=== PATIENT | male | born 1965 | race Caucasian/White ===

== ENCOUNTER → 2017-02-27 | Outpatient (CLI) | payer OTHER ==
--- NOTE | 2017-02-27 11:31 | REP ---
MRI LUMBAR SPINE WITHOUT CONTRAST: HISTORY: Back pain. A diffuse disc bulge is present at the L1-2 level. There is an increase in the amount of epidural fat. There is minimal thecal sac compression. The L1 nerves exit the neural foramina without compression. A diffuse disc bulge is present at the L2-3 level. There is an increase in the amount of epidural fat. There is minimal compression of the thecal sac. The L2 nerves exit the neural foramina without compression. A diffuse disc bulge is present at the L3-4 level. There is an increase in the amount of epidural fat. There is moderate compression of the thecal sac. The L3 nerves exit the neural foramina without compression. A diffuse disc bulge is present at the L4-5 level. There is an increase in the amount of epidural fat. There is moderate compression of the thecal sac. There is hypertrophy of the posterior articulating facets. The L4 nerves exit the neural foramina without compression. A diffuse disc bulge is present at the L5-S1 level. This abuts the thecal sac. There is an increase in the amount of epidural fat. There is mild compression of the thecal sac. There is hypertrophy of the posterior articulating facets. The L5 nerves exit the neural foramina without compression. The conus medullaris is normal in appearance terminating at the level of the T12-L1 intervertebral disc. Normal signal intensity is present in the lumbar intervertebral discs and vertebral bodies. IMPRESSION: 1. Diffuse disc bulge and epidural lipomatosis at the L1-2 and L2-3 levels with minimal thecal sac compression. 2. Diffuse disc bulge and epidural lipomatosis at the L3-4 and L4-5 levels with moderate thecal sac compression. 3. Diffuse disc bulge and epidural lipomatosis at the L5-S1 level with mild thecal sac compression. Signed by Nathan Pringle MD 02/27/2017 11:37 A
--- NOTE | 2017-02-27 11:53 | REP ---
MRI THORACIC SPINE WITHOUT CONTRAST: HISTORY: Back pain. A disc bulge and small central disc protrusion are present at the C7-T1 level. There is mild effacement of the thecal sac without spinal cord compression. The C7 neural foramina are patent on sagittal images. A disc bulge is present at the T1-2 level. There is minimal effacement of the thecal sac without spinal cord compression. The T1 neural foramina are patent. A small central disc protrusion is present at the T2-3 level. There is minimal effacement of the thecal sac without spinal cord compression. The T2 neural foramina are patent. A small central disc protrusion is present at the T3-4 level. There is minimal effacement of the thecal sac without spinal cord compression. The T3 neural foramina are patent. A small right paracentral disc protrusion is present at the T6-7 level. There is minimal effacement of the thecal sac without spinal cord compression. The T6 neural foramina are patent. A disc bulge is present at the T10-11 level. There is hypertrophy of the ligamenta flava and posterior articulating facets. These findings produce minimal central canal stenosis. The T10 neural foramina are patent. A disc bulge is present at the T11-12 level. There is minimal effacement of the thecal sac without spinal cord compression. The T10 neural foramina are patent. There is no other disc bulge or herniation. The remaining neural foramina are patent. The spinal cord is normal in signal intensity. Normal signal intensity is present in the thoracic vertebral bodies. Anterior osteophytes are present throughout the thoracic spine. IMPRESSION: 1. Disc bulges at the T1-2 and T11-12 levels without spinal cord compression. 2. Small disc protrusions at the T2-3, T3-4 and T6-7 levels without spinal cord compression. 3. Minimal central canal stenosis at the T10-11 level secondary to disc bulge, ligamentous and facet hypertrophy. Signed by Nathan Pringle MD 02/27/2017 11:59 A
== END ==
LOC: M PLARAD 09:38
PROVIDERS: ATTEND Registered Nurse
DX: M51.24 Other intervertebral disc displacement, thoracic region (principal); M51.26 Other intervertebral disc displacement, lumbar region

== ENCOUNTER → 2018-08-10 | Outpatient (REF) ==
--- NOTE | 2018-08-11 07:20 | REP ---
PARTIAL LUMBAR SPINE, THREE VIEWS: HISTORY: Degenerative disc disease. There is no acute fracture or subluxation. The L4-5 intervertebral disc is decreased in height consistent with disc degeneration. Osteophytes are present on L3-5. IMPRESSION: Degenerative change as described above. Electronically Signed by Nathan Pringle MD 08/11/2018 08:26 A
== END ==
LOC: M SMT 14:31
PROVIDERS: ATTEND Internal Medicine
DX: M51.36 Other intervertebral disc degeneration, lumbar region (principal); M25.78 Osteophyte, vertebrae